=== PATIENT | female | born 1975 | race Caucasian/White ===

== ENCOUNTER 2021-01-02 05:19 | Emergency (ER) | payer OTHER ==
[~2021-01-02] VITALS: Ht 160 cm; Wt 45.5 kg
[2021-01-02 05:25] VITALS: BP 136/90; Ht 160 cm; Wt 45.5 kg
[2021-01-02] MEDS ORDERED: PROAIR HFA8.5 G1 INH (05:32)
[2021-01-02 06:35] LABS: CALC OSMOLALITY 279 mosm/kg (275-300); CALCIUM 8.5 mg/dL (8.5-10.1); CHLORIDE - SERUM 105 mmol/L (98-107); CREATININE - SERUM 0.9 mg/dL (0.6-1.3); GLUCOSE 91 mg/dL (74-106); POTASSIUM - SERUM 3.7 mmol/L (3.5-5.1); SODIUM 139 mmol/L (136-145); UREA NITROGEN 19 mg/dL (7-18); eGFR NON AFRICAN AMERICAN 72 mL/min (90-120)
[2021-01-02 06:36] LABS: BASOPHILS 1.2 % (0-2); EOSINOPHILS 2.7 % (0-7); HEMATOCRIT 43.4 % (36.0-48.0); HEMOGLOBIN 14.6 g/dL (12-16); MCH 31.6 pg (26.0-34.0); MCHC 33.7 g/dL (31.0-37.0); MEAN PLATELET VOLUME 8.4 fL (7.4-10.4); MONOCYTES 9.4 % (2-11); NEUTROPHILS 48.7 % (40-80); PLATELET COUNT 271 10x3/uL (130-400); RBC 4.62 10x6/uL (4.00-5.40); RDW 12.5 % (11.5-14.5); WBC 8.2 10x3/uL (4.8-10.8)
[2021-01-02 06:50] LABS: ALBUMIN 3.7 g/dL (3.4-5.0); ALKALINE PHOSPHATASE 45 U/L (30-120); ALT (SGPT) 25 U/L (10-68); AMYLASE - SERUM 57 U/L (25-115); BILIRUBIN - TOTAL 0.68 mg/dL (0.2-1.3); CKMB 0.7 U/L (0.0-3.6); CREATINE KINASE 31 UL (21-215); LIPASE 64 U/L (73-393); PROTEIN - SERUM 6.7 g/dL (6.4-8.2)
[2021-01-02 06:52] LABS: TROPONIN-I < 0.017 ng/mL (0.000-0.060)
[2021-01-02 06:57] LABS: SARS-CoV-2 ANTIGEN NEGATIVE- SARS-COV-2 (NEGATIVE)
[2021-01-02] MEDS ORDERED: MOBIC7.5 MG PO (08:53)
== END 2021-01-02 09:17 | disposition home or self-care (01) ==
LOC: D.ER 05:19
PROVIDERS: Emergency Medicine
DX: R07.89 Other chest pain (principal)